=== PATIENT | male | born 1980 | race Two or more races ===

== ENCOUNTER 2023-07-28 14:07 | Inpatient (IN) | payer OTHER ==
[2023-07-28 15:27] VITALS: BMI 19.8
[2023-07-28] MEDS ORDERED: IBUPROFEN 600 MG TABLET (FP) PO PRN (17:06)
[2023-07-28] MEDS ORDERED: POLYETHYLENE GLYCOL (HEALTHYLAX) 3350 17 GM PACKET PO PRN (17:06)
[2023-07-28] MEDS ORDERED: DICYCLOMINE HCL 10 MG CAPSULE PO PRN (17:06)
[2023-07-28] MEDS ORDERED: BISMUTH SUBSALICYLATE 524 MG/30 ML PO PRN (17:06)
[2023-07-28] MEDS ORDERED: NICOTINE POLACRILEX 2 MG GUM BUC PRN (17:06)
[2023-07-28] MEDS ORDERED: ONDANSETRON *ODT* 4 MG TABLET SL PRN (17:06)
[2023-07-28] MEDS ORDERED: LOPERAMIDE HCL 2 MG CAPSULE PO PRN (17:06)
[2023-07-28] MEDS ORDERED: MAG HYDROX/AL HYDROX/SIMETH 30 ML UNIT-DOSE CUP PO PRN (17:06)
[2023-07-28] MEDS ORDERED: NICOTINE POLACRILEX 2 MG LOZENGE BC PRN (17:06)
[2023-07-28] MEDS ORDERED: ACETAMINOPHEN 325 MG TABLET (FP) PO PRN (17:06)
[2023-07-28] MEDS ORDERED: P-EPHED 60MG/TRIPROLIDI 2.5MG TABLET PO PRN (17:06)
[2023-07-28] MEDS ORDERED: MAGNESIUM HYDROX 2400MG/30ML ORAL SUSPENSION 30 ML CUP PO PRN (17:06)
[2023-07-28] MEDS ORDERED: guaiFENesin 600 MG TABLET.ER (FP) PO PRN (17:06)
[2023-07-28] MEDS ORDERED: IBUPROFEN 400 MG TABLET (FP) PO PRN (17:06)
[2023-07-28] MEDS ORDERED: BENZONATATE 200 MG CAPSULE PO PRN (17:06)
[2023-07-28] MEDS ORDERED: METOPROLOL TARTRATE 25 MG TABLET (FP) ONE (17:22)
[2023-07-28] MEDS: METOPROLOL TARTRATE 25 MG TABLET (FP) PO ONE (17:23)
[2023-07-28] MEDS: hydrOXYzine PAMOATE 25 MG CAPSULE (FP) PO PRN (18:57)
[2023-07-28] MEDS: METHOCARBAMOL 500 MG TABLET PO PRN (18:57)
[2023-07-28] MEDS: MELATONIN 5 MG TABLETS PO SCH (22:26)
[2023-07-28] MEDS: levETIRAcetam 500 MG TABLET (FP) PO SCH (22:26)
[2023-07-28] MEDS: THIAMINE 100 MG TABLET PO SCH (22:26)
[2023-07-28] MEDS: BENZOCAINE/MENTHOL (CHLORASEPTIC ) LOZENGE MM PRN (22:35)
[2023-07-29] MEDS: PRENATAL VITAMINS W/ FOLIC ACID TABLET (FP) PO SCH (10:17)
[2023-07-29] MEDS: LISINOPRIL 5 MG TABLET PO SCH (11:07)
[2023-07-29] MEDS: amLODIPine BESYLATE 5 MG TABLET (FP) PO SCH (11:07)
[2023-07-29 12:00] LABS: HEMATOCRIT 29.3 % (35.4-49); HEMOGLOBIN 9.5 GM/dL (11.7-16.9); MCH 28.9 pg (25.7-33.7); MCHC 32.5 g/dl (32.0-35.9); MEAN CELL VOLUME 88.8 fl (80-96); PLATELET COUNT 195 10^3/uL (134-434); RDW 17.1 % (11.9-15.9); WHITE BLOOD COUNT 13.5 K/mm3 (4.0-10.0)
[2023-07-29 12:19] LABS: POTASSIUM 3.6 mmol/L (3.5-5.1)
[2023-07-29 12:21] LABS: CALCIUM 8.4 mg/dL (8.5-10.1)
[2023-07-29 12:22] LABS: BLOOD UREA NITROGEN 12.6 mg/dL (7-18)
[2023-07-29 12:25] LABS: CREATININE 1.2 mg/dL (0.55-1.3)
[2023-07-29 12:26] LABS: BILIRUBIN,TOTAL 0.8 mg/dL (0.2-1)
[2023-07-29] MEDS ORDERED: INSULIN (NOVOLOG) ASPART 100 UNITS/ML 10ML VIAL ONE (16:52)
[2023-07-29] MEDS: metFORMIN HCL 500 MG TABLET (FP) PO SCH (16:57)
[2023-07-29] MEDS: INSULIN ASPART SLIDING SCALE (NOVOLOG) 1 VIAL SQ SCH (16:57)
[2023-07-30] MEDS ORDERED: INSULIN (NOVOLOG) ASPART 100 UNITS/ML 10ML VIAL ONE ×3 (06:58→23:41)
[2023-07-30] MEDS ORDERED: chlordiazePOXIDE HCL 25 MG CAPSULE PO PRN (09:19)
[2023-07-30] MEDS: chlordiazePOXIDE HCL 25 MG CAPSULE PO SCH (11:00)
[2023-07-30] MEDS: INSULIN (NOVOLOG) ASPART 100 UNITS/ML 10ML VIAL SQ SCH (16:52)
[2023-07-31] MEDS ORDERED: INSULIN (NOVOLOG) ASPART 100 UNITS/ML 10ML VIAL ONE ×4 (06:30→22:50)
[2023-08-01] MEDS: chlordiazePOXIDE HCL 25 MG CAPSULE PO SCH (05:27)
[2023-08-01] MEDS ORDERED: INSULIN (NOVOLOG) ASPART 100 UNITS/ML 10ML VIAL ONE ×3 (11:41→22:04)
[2023-08-02] MEDS ORDERED: chlordiazePOXIDE HCL 10 MG CAPSULE PO PRN
[2023-08-02] MEDS: chlordiazePOXIDE HCL 10 MG CAPSULE PO SCH (05:23)
[2023-08-02] MEDS ORDERED: INSULIN (NOVOLOG) ASPART 100 UNITS/ML 10ML VIAL ONE ×2 (16:54→22:02)
[2023-08-03] MEDS: chlordiazePOXIDE HCL 10 MG CAPSULE PO SCH (05:55)
[2023-08-03 08:56] VITALS: BP 144/81; PULSE 85; RESP 16; TEMP 98
[2023-08-04] MEDS ORDERED: chlordiazePOXIDE HCL 10 MG CAPSULE PO ONE (05:00)
== END 2023-08-03 10:39 | disposition home or self-care (01) | DRG 775 ==
LOC: YASAS 14:07 → UNDOADMIN 17:12 → Y6N 17:12
PROVIDERS: ADMIT Allergy & Immunology; ATTEND Surgery
PROC: HZ2ZZZZ Detoxification Services for Substance Abuse Treatment (ICD-10-PCS; principal; 2023-07-30)
DX: F10.230 Alcohol dependence with withdrawal, uncomplicated (principal); F17.210 Nicotine dependence, cigarettes, uncomplicated; I10 Essential (primary) hypertension; E11.9 Type 2 diabetes mellitus without complications; Z79.84 Long term (current) use of oral hypoglycemic drugs; D72.829 Elevated white blood cell count, unspecified; M17.0 Bilateral primary osteoarthritis of knee; Z99.89 Dependence on other enabling machines and devices
CPT/HCPCS: 36415; 80053; 80305; 80307; 82962; 85027; 86780; 93005; 93010

== ENCOUNTER 2023-10-29 14:08 | Inpatient (IN) | payer OTHER ==
[2023-10-29 14:33] VITALS: BMI 19.1
[2023-10-29] MEDS ORDERED: P-EPHED 60MG/TRIPROLIDI 2.5MG TABLET PO PRN (15:54)
[2023-10-29] MEDS ORDERED: BISMUTH SUBSALICYLATE 524 MG/30 ML PO PRN (15:54)
[2023-10-29] MEDS ORDERED: POLYETHYLENE GLYCOL (HEALTHYLAX) 3350 17 GM PACKET PO PRN (15:54)
[2023-10-29] MEDS ORDERED: IBUPROFEN 400 MG TABLET (FP) PO PRN (15:54)
[2023-10-29] MEDS ORDERED: DICYCLOMINE HCL 10 MG CAPSULE PO PRN (15:54)
[2023-10-29] MEDS ORDERED: IBUPROFEN 600 MG TABLET (FP) PO PRN (15:54)
[2023-10-29] MEDS ORDERED: ACETAMINOPHEN 325 MG TABLET (FP) PO PRN (15:54)
[2023-10-29] MEDS ORDERED: BENZONATATE 200 MG CAPSULE PO PRN (15:54)
[2023-10-29] MEDS ORDERED: ONDANSETRON *ODT* 4 MG TABLET SL PRN (15:54)
[2023-10-29] MEDS ORDERED: MAGNESIUM HYDROX 2400MG/30ML ORAL SUSPENSION 30 ML CUP PO PRN (15:54)
[2023-10-29] MEDS ORDERED: NICOTINE POLACRILEX 2 MG GUM BUC PRN (15:54)
[2023-10-29] MEDS ORDERED: MAG HYDROX/AL HYDROX/SIMETH 30 ML UNIT-DOSE CUP PO PRN (15:54)
[2023-10-29] MEDS ORDERED: NICOTINE POLACRILEX 2 MG LOZENGE BC PRN (15:54)
[2023-10-29] MEDS ORDERED: METOPROLOL TARTRATE 25 MG TABLET (FP) ONE (15:59)
[2023-10-29] MEDS: METOPROLOL TARTRATE 25 MG TABLET (FP) PO ONE (16:01)
[2023-10-29] MEDS ORDERED: amLODIPine BESYLATE 5 MG TABLET (FP) ONE (18:03)
[2023-10-29] MEDS ORDERED: LISINOPRIL 10 MG TABLET ONE (18:03)
[2023-10-29] MEDS: amLODIPine BESYLATE 5 MG TABLET (FP) PO ONE (18:03)
[2023-10-29] MEDS: LISINOPRIL 10 MG TABLET PO ONE (18:03)
[2023-10-29] MEDS ORDERED: INSULIN (NOVOLOG) ASPART 100 UNITS/ML 10ML VIAL ONE (18:03)
[2023-10-29] MEDS: INSULIN ASPART SLIDING SCALE (NOVOLOG) 1 VIAL SQ SCH (18:10)
[2023-10-29] MEDS: MELATONIN 5 MG TABLETS PO SCH (22:38)
[2023-10-29] MEDS: THIAMINE 100 MG TABLET PO SCH (22:38)
[2023-10-29] MEDS: levETIRAcetam 500 MG TABLET (FP) PO SCH (22:38)
[2023-10-30] MEDS: metFORMIN HCL 500 MG TABLET (FP) PO SCH (06:07)
[2023-10-30] MEDS: PANTOPRAZOLE 40 MG TABLET PO SCH (08:58)
[2023-10-30] MEDS: LISINOPRIL 5 MG TABLET PO SCH (09:11)
[2023-10-30] MEDS: PRENATAL VITAMINS W/ FOLIC ACID TABLET (FP) PO SCH (09:11)
[2023-10-30] MEDS: amLODIPine BESYLATE 10 MG TABLET (FP) PO SCH (09:11)
[2023-10-30] MEDS: FOLIC ACID 1 MG TABLET (FP) PO SCH (09:11)
[2023-10-30 11:30] LABS: CHLORIDE 94 mmol/L (98-107); POTASSIUM 3.3 mmol/L (3.5-5.1); SODIUM 134 mmol/L (136-145)
[2023-10-30] MEDS ORDERED: INSULIN ASPART SLIDING SCALE (NOVOLOG) 1 VIAL SQ ONE (11:33)
[2023-10-30 11:34] LABS: HEMATOCRIT 33.7 % (35.4-49); MCH 29.1 pg (25.7-33.7); MCHC 32.6 g/dl (32.0-35.9); MEAN CELL VOLUME 89.2 fl (80-96); MEAN PLT VOLUME 8.5 fl (7.5-11.1); PLATELET COUNT 161 10^3/uL (134-434); RBC 3.78 M/mm3 (4.00-5.60); RDW 18.5 % (11.9-15.9); WHITE BLOOD COUNT 7.3 K/mm3 (4.0-10.0)
[2023-10-30 11:40] LABS: CALCIUM 8.9 mg/dL (8.5-10.1)
[2023-10-30 11:41] LABS: ANION GAP 11 mmol/L (4-13); BLOOD UREA NITROGEN 8.8 mg/dL (7-18); CO2 29 mmol/L (21-32); GLUCOSE,RANDOM 189 mg/dL (74-106)
[2023-10-30 11:44] LABS: CREATININE 0.9 mg/dL (0.55-1.3); SGOT/AST 46 U/L (15-37); SGPT/ALT 39 U/L (13-61)
[2023-10-30 11:46] LABS: BILIRUBIN,TOTAL 0.5 mg/dL (0.2-1); TOT PROT 7.3 g/dl (6.4-8.2)
[2023-10-30 11:47] LABS: ALK PHOS 92 U/L (45-117)
[2023-10-30] MEDS: LOPERAMIDE HCL 2 MG CAPSULE PO PRN (13:06)
[2023-10-30] MEDS: BENZOCAINE/MENTHOL (CHLORASEPTIC ) LOZENGE MM PRN (14:53)
[2023-10-30] MEDS: hydrOXYzine PAMOATE 25 MG CAPSULE (FP) PO PRN (21:54)
[2023-10-31] MEDS: guaiFENesin 600 MG TABLET.ER (FP) PO PRN (06:08)
[2023-10-31 10:06] LABS: POTASSIUM 3.1 mmol/L (3.5-5.1)
[2023-10-31 10:09] LABS: CALCIUM 9.7 mg/dL (8.5-10.1)
[2023-10-31 10:10] LABS: BLOOD UREA NITROGEN 11.9 mg/dL (7-18)
[2023-10-31 10:14] LABS: CREATININE 1.1 mg/dL (0.55-1.3)
[2023-10-31] MEDS: POTASSIUM CHLORIDE ORAL LIQUID 20 MEQ/15 ML PO ONE (11:11)
[2023-10-31 17:03] VITALS: RESP 16
[2023-10-31] MEDS ORDERED: PATIENT'S OWN MEDICATION (NON-FORMULARY) (Ferrous Sulfate [Ferrous Sulfate] 325 MG Tablet) PO SCH (22:00)
[2023-10-31] MEDS: METHOCARBAMOL 500 MG TABLET PO PRN (22:26)
[2023-10-31] MEDS: FERROUS SO4 325 MG TABLET (FP) PO SCH (22:26)
[2023-11-01 09:57] VITALS: BP 143/88; PULSE 85; TEMP 97.6
== END 2023-11-01 11:16 | disposition other institution (70) | DRG 775 ==
LOC: YASAS 14:08 → Y3N 17:50
PROVIDERS: ADMIT Allergy & Immunology; ATTEND Surgery
PROC: HZ2ZZZZ Detoxification Services for Substance Abuse Treatment (ICD-10-PCS; principal; 2023-10-29)
DX: F10.20 Alcohol dependence, uncomplicated (principal); F17.210 Nicotine dependence, cigarettes, uncomplicated; E87.6 Hypokalemia; I10 Essential (primary) hypertension; E11.9 Type 2 diabetes mellitus without complications; Z79.84 Long term (current) use of oral hypoglycemic drugs
CPT/HCPCS: 36415; 80048; 80053; 80305; 80307; 82962; 84132; 85027; 86780

== ENCOUNTER 2023-12-13 10:48 | Inpatient (IN) | payer OTHER ==
[2023-12-13 11:15] VITALS: BMI 20.3
[2023-12-13] MEDS ORDERED: POLYETHYLENE GLYCOL (HEALTHYLAX) 3350 17 GM PACKET PO PRN (11:48)
[2023-12-13] MEDS ORDERED: ONDANSETRON *ODT* 4 MG TABLET SL PRN (11:48)
[2023-12-13] MEDS ORDERED: MAG HYDROX/AL HYDROX/SIMETH 30 ML UNIT-DOSE CUP PO PRN (11:48)
[2023-12-13] MEDS ORDERED: LOPERAMIDE HCL 2 MG CAPSULE PO PRN (11:48)
[2023-12-13] MEDS ORDERED: MAGNESIUM HYDROX 2400MG/30ML ORAL SUSPENSION 30 ML CUP PO PRN (11:48)
[2023-12-13] MEDS ORDERED: DICYCLOMINE HCL 10 MG CAPSULE PO PRN (11:48)
[2023-12-13] MEDS ORDERED: ACETAMINOPHEN 325 MG TABLET (FP) PO PRN (11:48)
[2023-12-13] MEDS ORDERED: BENZONATATE 200 MG CAPSULE PO PRN (11:48)
[2023-12-13] MEDS ORDERED: BISMUTH SUBSALICYLATE 262 MG/15 ML BTL PO PRN (11:48)
[2023-12-13] MEDS ORDERED: chlordiazePOXIDE HCL 25 MG CAPSULE PO PRN (11:48)
[2023-12-13] MEDS ORDERED: NALOXONE (NARCAN) HCL 4 MG/0.1 ML SPRAY NS PRN (11:48)
[2023-12-13] MEDS ORDERED: IBUPROFEN 400 MG TABLET (FP) PO PRN (11:48)
[2023-12-13] MEDS ORDERED: BENZOCAINE/MENTHOL (CHLORASEPTIC ) LOZENGE MM PRN (11:48)
[2023-12-13] MEDS: NICOTINE 14 MG/24 HOURS TOPICAL PATCH TD SCH (12:09)
[2023-12-13] MEDS ORDERED: PRENATAL VITAMINS W/ FOLIC ACID TABLET (FP) PO ONE (12:15)
[2023-12-13] MEDS: PRENATAL VITAMINS W/ FOLIC ACID TABLET (FP) PO SCH (12:19)
[2023-12-13] MEDS ORDERED: LISINOPRIL 5 MG TABLET PO SCH (12:30)
[2023-12-13] MEDS ORDERED: PANTOPRAZOLE 40 MG TABLET PO SCH ×2 (12:30→14:15)
[2023-12-13] MEDS ORDERED: amLODIPine BESYLATE 5 MG TABLET (FP) ONE (13:15)
[2023-12-13] MEDS ORDERED: levETIRAcetam 500 MG TABLET (FP) PO ONE (13:15)
[2023-12-13] MEDS: levETIRAcetam 500 MG TABLET (FP) PO SCH (13:19)
[2023-12-13] MEDS: amLODIPine BESYLATE 10 MG TABLET (FP) PO SCH (13:19)
[2023-12-13] MEDS: LISINOPRIL 5 MG TABLET PO SCH ×2 (13:56→14:10)
[2023-12-13] MEDS ORDERED: FLU VACCINE (FLULAVAL) PF 45 MCG/0.5 ML SYRINGE 2024-2025 IM ONE (14:00)
[2023-12-13] MEDS: amLODIPine BESYLATE 5 MG TABLET (FP) PO SCH (14:08)
[2023-12-13] MEDS: BACITRACIN 0.9 GM PACKET TP SCH (14:15)
[2023-12-13] MEDS ORDERED: INSULIN (NOVOLOG) ASPART 100 UNITS/ML 10ML VIAL ONE (16:48)
[2023-12-13] MEDS: chlordiazePOXIDE HCL 25 MG CAPSULE PO SCH (16:51)
[2023-12-13] MEDS: IBUPROFEN 600 MG TABLET (FP) PO PRN (16:52)
[2023-12-13] MEDS: PANTOPRAZOLE 40 MG TABLET PO SCH (16:52)
[2023-12-13] MEDS: hydrOXYzine PAMOATE 25 MG CAPSULE (FP) PO PRN (16:52)
[2023-12-13] MEDS: INSULIN ASPART SLIDING SCALE (NOVOLOG) 1 VIAL SQ SCH (16:58)
[2023-12-13] MEDS: THIAMINE 100 MG TABLET PO SCH (22:15)
[2023-12-13] MEDS: METHOCARBAMOL 500 MG TABLET PO PRN (22:15)
[2023-12-13] MEDS: MELATONIN 5 MG TABLETS PO SCH (22:15)
[2023-12-14 11:19] LABS: HEMATOCRIT 28.3 % (35.4-49); HEMOGLOBIN 9.3 GM/dL (11.7-16.9); MCH 28.5 pg (25.7-33.7); MCHC 32.7 g/dl (32.0-35.9); MEAN PLT VOLUME 7.6 fl (7.5-11.1); PLATELET COUNT 225 10^3/uL (134-434); RBC 3.25 M/mm3 (4.00-5.60); RDW 17.8 % (11.9-15.9); WHITE BLOOD COUNT 3.8 K/mm3 (4.0-10.0)
[2023-12-14] MEDS: FLU VACCINE (FLULAVAL) PF 45 MCG/0.5 ML SYRINGE 2024-2025 IM ONE (11:35)
[2023-12-14] MEDS: INSULIN (NOVOLOG) ASPART 100 UNITS/ML 10ML VIAL SQ ONE (12:44)
[2023-12-14 13:14] LABS: CHLORIDE 100 mmol/L (98-107); POTASSIUM 3.8 mmol/L (3.5-5.1); SODIUM 136 mmol/L (136-145)
[2023-12-14 13:16] LABS: ALBUMIN 2.9 g/dl (3.4-5.0); ANION GAP 7 mmol/L (4-13); BLOOD UREA NITROGEN 7.3 mg/dL (7-18); CALCIUM 9.1 mg/dL (8.5-10.1); CO2 29 mmol/L (21-32)
[2023-12-14 13:17] LABS: GLUCOSE,RANDOM 291 mg/dL (74-106)
[2023-12-14 13:19] LABS: CREATININE 1.1 mg/dL (0.55-1.3); SGOT/AST 12 U/L (15-37); SGPT/ALT 30 U/L (13-61)
[2023-12-14 13:21] LABS: BILIRUBIN,TOTAL 0.6 mg/dL (0.2-1); TOT PROT 6.5 g/dl (6.4-8.2)
[2023-12-14 13:22] LABS: ALK PHOS 77 U/L (45-117)
[2023-12-14] MEDS: INSULIN ASPART SLIDING SCALE (NOVOLOG) 1 VIAL SQ SCH (17:16)
[2023-12-15] MEDS: chlordiazePOXIDE HCL 25 MG CAPSULE PO SCH (05:45)
[2023-12-15] MEDS ORDERED: INSULIN (NOVOLOG) ASPART 100 UNITS/ML 10ML VIAL ONE ×2 (06:49→11:33)
[2023-12-15 13:57] LABS: IRON SERUM 23 ug/dL (50-175)
[2023-12-15 13:58] LABS: TOTAL IRON BINDING CAPACITY 367 ug/dL (250-450)
[2023-12-15] MEDS: guaiFENesin 600 MG TABLET.ER (FP) PO PRN (14:53)
[2023-12-16] MEDS ORDERED: chlordiazePOXIDE HCL 10 MG CAPSULE PO PRN
[2023-12-16] MEDS: chlordiazePOXIDE HCL 10 MG CAPSULE PO SCH (05:58)
[2023-12-16] MEDS ORDERED: INSULIN (NOVOLOG) ASPART 100 UNITS/ML 10ML VIAL ONE (11:53)
[2023-12-17] MEDS: chlordiazePOXIDE HCL 10 MG CAPSULE PO SCH (05:55)
[2023-12-17] MEDS ORDERED: INSULIN (NOVOLOG) ASPART 100 UNITS/ML 10ML VIAL ONE (16:29)
[2023-12-18] MEDS: chlordiazePOXIDE HCL 10 MG CAPSULE PO ONE (05:58)
[2023-12-18 06:13] VITALS: PULSE 85
[2023-12-18 08:57] VITALS: BP 129/80; RESP 16; TEMP 97.9
[2023-12-18] MEDS: NALOXONE (NYS OPIOID OVERDOSE PROGRAM) 4 MG/0.1 ML SPRAY NS PRN (09:29)
== END 2023-12-18 09:40 | disposition home or self-care (01) | DRG 775 ==
LOC: YASAS 10:48 → Y6N 12:04
PROVIDERS: ADMIT Allergy & Immunology; ATTEND Surgery
PROC: HZ2ZZZZ Detoxification Services for Substance Abuse Treatment (ICD-10-PCS; principal; 2023-12-13)
DX: F10.230 Alcohol dependence with withdrawal, uncomplicated (principal); F17.210 Nicotine dependence, cigarettes, uncomplicated; I10 Essential (primary) hypertension; E11.9 Type 2 diabetes mellitus without complications; Z79.84 Long term (current) use of oral hypoglycemic drugs; Z86.69 Personal history of other diseases of the nervous system and sense organs; Z87.11 Personal history of peptic ulcer disease; Z86.11 Personal history of tuberculosis
CPT/HCPCS: 36415; 80053; 80305; 80307; 82607; 82728; 82747; 82962; 83036; 83540; 83550; 85014; 85027; 86780; 90656; 93005; 93010; G0008

== ENCOUNTER 2024-07-24 11:07 | Inpatient (IN) | payer OTHER ==
[2024-07-24 11:26] VITALS: BMI 20.9
[2024-07-24] MEDS ORDERED: ONDANSETRON *ODT* 4 MG TABLET SL PRN (12:22)
[2024-07-24] MEDS ORDERED: NALOXONE (NARCAN) HCL 4 MG/0.1 ML SPRAY NS PRN (12:22)
[2024-07-24] MEDS ORDERED: DICYCLOMINE HCL 10 MG CAPSULE PO PRN (12:22)
[2024-07-24] MEDS ORDERED: POLYETHYLENE GLYCOL (HEALTHYLAX) 3350 17 GM PACKET PO PRN (12:22)
[2024-07-24] MEDS ORDERED: MAGNESIUM HYDROX 2400MG/30ML ORAL SUSPENSION 30 ML CUP PO PRN (12:22)
[2024-07-24] MEDS ORDERED: BENZOCAINE/MENTHOL (CHLORASEPTIC ) LOZENGE MM PRN (12:22)
[2024-07-24] MEDS ORDERED: guaiFENesin 600 MG TABLET.ER (FP) PO PRN (12:22)
[2024-07-24] MEDS ORDERED: LOPERAMIDE HCL 2 MG CAPSULE PO PRN (12:22)
[2024-07-24] MEDS ORDERED: MAG HYDROX/AL HYDROX/SIMETH 30 ML UNIT-DOSE CUP PO PRN (12:22)
[2024-07-24] MEDS ORDERED: BISMUTH SUBSALICYLATE 262 MG/15 ML BTL PO PRN (12:22)
[2024-07-24] MEDS ORDERED: IBUPROFEN 400 MG TABLET (FP) PO PRN (12:22)
[2024-07-24] MEDS ORDERED: BENZONATATE 200 MG CAPSULE PO PRN (12:22)
[2024-07-24] MEDS ORDERED: chlordiazePOXIDE HCL 25 MG CAPSULE PO PRN (12:22)
[2024-07-24] MEDS ORDERED: NALTREXONE HCL 50 MG TABLET PO ONE (13:15)
[2024-07-24] MEDS ORDERED: levETIRAcetam 500 MG TABLET (FP) PO ONE (13:41)
[2024-07-24] MEDS ORDERED: LISINOPRIL 10 MG TABLET ONE (13:42)
[2024-07-24] MEDS ORDERED: amLODIPine BESYLATE 5 MG TABLET (FP) ONE (13:42)
[2024-07-24] MEDS: LISINOPRIL 10 MG TABLET PO SCH (13:44)
[2024-07-24] MEDS: amLODIPine BESYLATE 10 MG TABLET (FP) PO SCH (13:44)
[2024-07-24] MEDS: levETIRAcetam 500 MG TABLET (FP) PO SCH (13:44)
[2024-07-24] MEDS: NALTREXONE HCL 50 MG TABLET PO ONE (15:20)
[2024-07-24] MEDS ORDERED: INSULIN (NOVOLOG) ASPART 100 UNITS/ML 10ML VIAL ONE (16:33)
[2024-07-24] MEDS: INSULIN ASPART SLIDING SCALE (NOVOLOG) 1 VIAL SQ SCH (16:37)
[2024-07-24] MEDS: chlordiazePOXIDE HCL 25 MG CAPSULE PO SCH (16:37)
[2024-07-24] MEDS ORDERED: cloNIDine HCL 0.1 MG TABLET PO PRN (16:39)
[2024-07-24] MEDS: ACETAMINOPHEN 325 MG TABLET (FP) PO PRN (21:01)
[2024-07-24] MEDS ORDERED: levETIRAcetam 500 MG TABLET (FP) PO SCH (22:00)
[2024-07-24] MEDS ORDERED: PATIENT'S OWN MEDICATION (NON-FORMULARY) (Metformin Hcl [Metformin Er Gastric] 1,000 MG Ta PO SCH (22:00)
[2024-07-24] MEDS: THIAMINE 100 MG TABLET PO SCH (22:22)
[2024-07-24] MEDS: MELATONIN 5 MG TABLETS PO SCH (22:23)
[2024-07-25] MEDS: PRENATAL VITAMINS W/ FOLIC ACID TABLET (FP) PO SCH (09:49)
[2024-07-25] MEDS: NALTREXONE HCL 50 MG TABLET PO SCH (09:51)
[2024-07-25] MEDS: PANTOPRAZOLE 40 MG TABLET PO SCH (09:51)
[2024-07-25] MEDS: NICOTINE 14 MG/24 HOURS TOPICAL PATCH TD SCH (09:52)
[2024-07-25] MEDS ORDERED: LISINOPRIL 5 MG TABLET PO SCH (10:00)
[2024-07-25] MEDS ORDERED: amLODIPine BESYLATE 5 MG TABLET (FP) PO SCH (10:00)
[2024-07-25 11:22] LABS: HEMATOCRIT 35.5 % (40.1-51.0); HEMOGLOBIN 11.1 g/dL (13.7-17.5); MCHC 31.3 g/dl (32.3-36.5); MEAN CELL VOLUME 90.3 fl (79.0-92.2); MEAN PLT VOLUME 11.6 fl (9.4-12.4); PLATELET COUNT 216 x10^3/uL (163-337); RDW 20.3 % (12.1-15.9)
[2024-07-25 11:25] LABS: CHLORIDE 92 mmol/L (98-107); POTASSIUM 3.6 mmol/L (3.5-5.1); SODIUM 131 mmol/L (136-145)
[2024-07-25 11:37] LABS: ALBUMIN 4.1 g/dl (3.4-5.0); ANION GAP 9 mmol/L (4-13); BLOOD UREA NITROGEN 13.3 mg/dL (7-18); CALCIUM 9.6 mg/dL (8.5-10.1); CO2 30 mmol/L (21-32)
[2024-07-25 11:40] LABS: CREATININE 1.5 mg/dL (0.55-1.3); SGOT/AST 41 U/L (15-37); SGPT/ALT 41 U/L (13-61)
[2024-07-25 11:42] LABS: BILIRUBIN,TOTAL 0.4 mg/dL (0.2-1); TOT PROT 8.8 g/dl (6.4-8.2)
[2024-07-25 11:43] LABS: ALK PHOS 132 U/L (45-117)
[2024-07-25] MEDS ORDERED: INSULIN (NOVOLOG) ASPART 100 UNITS/ML 10ML VIAL ONE ×2 (11:46→16:41)
[2024-07-25 11:49] LABS: GLUCOSE,RANDOM 491 mg/dL (74-106)
[2024-07-25] MEDS ORDERED: INSULIN GLARGINE (LANTUS) 100 UNITS/ML UNITS SQ SCH ×2 (22:00)
[2024-07-25] MEDS: INSULIN GLARGINE (LANTUS) 100 UNITS/ML UNITS SQ SCH (22:01)
[2024-07-26] MEDS ORDERED: INSULIN (NOVOLOG) ASPART 100 UNITS/ML 10ML VIAL ONE ×2 (05:29→17:02)
[2024-07-26] MEDS: chlordiazePOXIDE HCL 25 MG CAPSULE PO SCH (06:00)
[2024-07-27] MEDS ORDERED: chlordiazePOXIDE HCL 10 MG CAPSULE PO PRN
[2024-07-27] MEDS ORDERED: INSULIN (NOVOLOG) ASPART 100 UNITS/ML 10ML VIAL ONE ×3 (05:37→16:46)
[2024-07-27] MEDS: chlordiazePOXIDE HCL 10 MG CAPSULE PO SCH (05:38)
[2024-07-27] MEDS: IBUPROFEN 600 MG TABLET (FP) PO PRN (10:13)
[2024-07-27] MEDS: hydrOXYzine PAMOATE 25 MG CAPSULE (FP) PO PRN (22:23)
[2024-07-27] MEDS: METHOCARBAMOL 500 MG TABLET PO PRN (22:24)
[2024-07-28] MEDS: chlordiazePOXIDE HCL 10 MG CAPSULE PO SCH (06:00)
[2024-07-28] MEDS ORDERED: INSULIN (NOVOLOG) ASPART 100 UNITS/ML 10ML VIAL ONE (10:36)
[2024-07-29] MEDS ORDERED: INSULIN (NOVOLOG) ASPART 100 UNITS/ML 10ML VIAL ONE (05:40)
[2024-07-29] MEDS: chlordiazePOXIDE HCL 10 MG CAPSULE PO ONE (05:44)
[2024-07-29 06:43] VITALS: RESP 16
[2024-07-29 08:42] VITALS: BP 134/75; PULSE 76; TEMP 98
== END 2024-07-29 11:49 | disposition home or self-care (01) | DRG 775 ==
LOC: YASAS 11:07 → Y6N 14:03
PROVIDERS: ADMIT Family Medicine; ATTEND Family Medicine Addiction Medicine
PROC: HZ2ZZZZ Detoxification Services for Substance Abuse Treatment (ICD-10-PCS; principal; 2024-07-24)
DX: F10.230 Alcohol dependence with withdrawal, uncomplicated (principal); F17.210 Nicotine dependence, cigarettes, uncomplicated; F32.A Depression, unspecified; I10 Essential (primary) hypertension; K21.9 Gastro-esophageal reflux disease without esophagitis; E11.9 Type 2 diabetes mellitus without complications; Z79.84 Long term (current) use of oral hypoglycemic drugs; Z86.19 Personal history of other infectious and parasitic diseases; Z98.890 Other specified postprocedural states; Z99.89 Dependence on other enabling machines and devices
CPT/HCPCS: 36415; 71046-TC-FY; 80053; 80177; 80305; 80307; 82962; 83036; 85027; 86780; 93005; 93010